=== PATIENT | female | born 1940 | race Caucasian/White ===

== ENCOUNTER → 2017-11-19 | Outpatient (CLI) | payer OTHER ==
[2017-11-19 15:41] LABS: CALCIUM 9.1 mg/dL (8.5-10.1); CREATININE 0.7 mg/dL (0.6-1.3); POTASSIUM 4.1 mmol/L (3.5-5.1)
== END ==
LOC: M.ULTRA 15:00
PROVIDERS: Family Medicine
DX: M25.461 Effusion, right knee (principal); M25.561 Pain in right knee; M79.661 Pain in right lower leg; M79.89 Other specified soft tissue disorders

== ENCOUNTER → 2017-11-20 | Outpatient (CLI) | payer OTHER | LOC: M.RAD 09:21 | DX: M25.461 Effusion, right knee (principal); M25.561 Pain in right knee ==

== ENCOUNTER → 2018-12-04 | Outpatient (CLI) | payer OTHER | LOC: M.RAD 12:42 | DX: M85.88 Other specified disorders of bone density and structure, other site (principal); E11.9 Type 2 diabetes mellitus without complications; Z68.33 Body mass index [BMI] 33.0-33.9, adult; Z78.0 Asymptomatic menopausal state ==

== ENCOUNTER → 2019-02-28 | Outpatient (CLI) | payer OTHER | LOC: M.ULTRA 10:16 | DX: N93.9 Abnormal uterine and vaginal bleeding, unspecified (principal) ==

== ENCOUNTER 2019-04-26 23:26 | Emergency (ER) | payer OTHER ==
[~2019-04-26] VITALS: Ht 162.6 cm; Wt 87.5 kg
[2019-04-26] MEDS ORDERED: CENTRUM CHEWAB1 EAC2 PO (23:41)
[2019-04-26] MEDS ORDERED: OMEGA-31000 M1 PO (23:42)
[2019-04-26] MEDS ORDERED: VITAMIN D3400 UNIT PO (23:42)
[2019-04-26] MEDS ORDERED: VITAMIN C500 M1 PO (23:42)
[2019-04-26] MEDS ORDERED: IBUPROFEN 200200 M1 PO (23:43)
[2019-04-26] MEDS ORDERED: VITAMIN E400 UNIT PO (23:43)
[2019-04-26] MEDS ORDERED: CALCIUM 600 +1 EAC1 PO (23:43)
[2019-04-27 00:02] LABS: ABSOLUTE EOSINOPHILS 0.1 thou/uL (0.0-0.7); ABSOLUTE LYMPHOCYTES 1.6 thou/uL (0.8-5.3); ABSOLUTE MONOCYTES 0.4 thou/uL (0.0-1.2); ABSOLUTE NEUTROPHILS 2.6 thou/uL (1.6-8.1); BASOPHILS 0.7 %; EOSINOPHILS 2.5 %; HEMATOCRIT 41.8 % (37.0-47.0); LYMPHOCYTES 34.2 %; MCH 31.5 pg (26.0-34.0); MCHC 33.4 g/dL (28.0-37.0); MCV 94.3 fL (80.0-100.0); MONOCYTES 7.6 %; MPV 7.1 fl. (7.2-11.1); NUCLEATED RBCS 0 /100WBC; PLATELET COUNT* 291 thou/uL (150-400); RBC 4.43 mil/uL (4.20-5.00); RDW-CV 13.1 % (10.5-14.5); WBC 4.7 thou/uL (4.0-11.0)
[2019-04-27 00:10] LABS: ANION GAP 8 mmol/L (7-16); BUN 17 mg/dL (7-18); CALCIUM 9.4 mg/dL (8.5-10.1); CHLORIDE 103 mmol/L (98-107); CO2 28 mmol/L (21-32); CREATININE 0.7 mg/dL (0.6-1.3); GLUCOSE 115 mg/dL (70-99); POTASSIUM 3.9 mmol/L (3.5-5.1); SODIUM 139 mmol/L (136-145)
[2019-04-27 00:20] LABS: ALBUMIN 3.6 g/dL (3.4-5.0); ALKALINE PHOSPHATASE 77 U/L (46-116); SGOT 19 U/L (15-37); SGPT 39 U/L (30-65); TOTAL BILIRUBIN 0.3 mg/dL (<0.1-1.0); TOTAL PROTEIN 7.2 g/dL (6.4-8.2); TROPONIN-I LEVEL <0.06 ng/mL (<0.06)
[2019-04-27 00:58] LABS: URINE BILIRUBIN NEGATIVE (Negative); URINE BLOOD NEGATIVE (Negative); URINE CLARITY CLEAR; URINE COLOR YELLOW; URINE GLUCOSE-RANDOM NEGATIVE (Negative); URINE KETONES NEGATIVE (Negative); URINE LEUKOCYTES-REFLEX 1+ (Negative); URINE NITRITE-REFLEX NEGATIVE (Negative); URINE PROTEIN NEGATIVE (Negative); URINE SPECIFIC GRAVITY <= 1.005 (1.005-1.030); URINE UROBILINOGEN 0.2 E.U./dl (0.2-1.0)
[2019-04-27 01:09] LABS: CASTS None Seen /LPF (None Seen); CRYSTALS None Seen /LPF (None Seen); MUCUS 0-3 Light strn/LPF (None Seen); SQUAMOUS 0-3 Few /LPF (0-3); TRANSITIONAL EPITHEL CELL 0-3 Few /LPF (None Seen); URINE RBC 0-2 Rare /HPF (0-2); WBC CLUMPS Few (None Seen)
[2019-04-27] MEDS ORDERED: KEFLEX500 M1 PO (01:37)
[2019-04-27 01:55] VITALS: BP 132/78
--- NOTE | 2019-04-29 09:27 | EKG ---
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 : 1940 Requested By: Bruce Nuñez Order Number: [id number] MD: Frandy Alegre Measurements Intervals [place] Rate: 83 P: 46 OR: 179 QRS: -24 QRSD: 93 T: 45 QT: 354 QTc: 416 Interpretive Statements Sinus rhythm Borderline left axis deviation Low voltage, precordial leads Borderline T abnormalities, anterior leads No previous ECG available for comparison Electronically Signed On 04-29-2019 9:27:29 CDT by Frandy Alegre [email or web address] <ELECTRONICALLY SIGNED> By: Frandy Alegre MD, [facility] 04/29/1927 Frandy Alegre MD, FACC /EPI
== END 2019-04-27 01:55 | disposition home or self-care (01) ==
LOC: M.ERS 23:26
PROVIDERS: Emergency Medicine Emergency Medical Services
DX: N39.0 Urinary tract infection, site not specified (principal); G89.29 Other chronic pain; M54.40 Lumbago with sciatica, unspecified side; K76.0 Fatty (change of) liver, not elsewhere classified; Z88.8 Allergy status to other drugs, medicaments and biological substances

== ENCOUNTER → 2019-05-12 | Outpatient (CLI) | payer OTHER ==
[~2019-05-12] MED LIST: CALCIUM 600 +1 EAC1 PO; CENTRUM CHEWAB1 EAC2 PO; IBUPROFEN 200200 M1 PO; KEFLEX500 M1 PO; OMEGA-31000 M1 PO; VITAMIN C500 M1 PO; VITAMIN D3400 UNIT PO; VITAMIN E400 UNIT PO
== END ==
LOC: M.MRI 10:56
DX: M51.16 Intervertebral disc disorders with radiculopathy, lumbar region (principal); M48.061 Spinal stenosis, lumbar region without neurogenic claudication; M47.26 Other spondylosis with radiculopathy, lumbar region

== ENCOUNTER 2020-08-11 13:14 | Emergency (ER) | payer OTHER ==
[~2020-08-11] VITALS: Ht 162.6 cm; Wt 81.7 kg
[2020-08-11 14:04] LABS: ABSOLUTE EOSINOPHILS 0.1 thou/uL (0.0-0.7); ABSOLUTE LYMPHOCYTES 1.3 thou/uL (0.8-5.3); ABSOLUTE MONOCYTES 0.4 thou/uL (0.0-1.2); ABSOLUTE NEUTROPHILS 2.5 thou/uL (1.6-8.1); EOSINOPHILS 3.4 %; HEMATOCRIT 42.6 % (37.0-47.0); HEMOGLOBIN 14.2 gm/dL (12.0-15.0); LYMPHOCYTES 30.3 %; MCH 31.7 pg (26.0-34.0); MCHC 33.4 g/dL (28.0-37.0); MCV 94.9 fL (80.0-100.0); MONOCYTES 8.2 %; MPV 7.1 fl. (7.2-11.1); NUCLEATED RBCS 0 /100WBC; PLATELET COUNT* 281 thou/uL (150-400); POLYS 57.1 %; RBC 4.49 mil/uL (4.20-5.00); RDW-CV 13.5 % (10.5-14.5); WBC 4.3 thou/uL (4.0-11.0)
[2020-08-11 14:14] LABS: CALCIUM 8.8 mg/dL (8.5-10.1); CREATININE 0.7 mg/dL (0.6-1.3); POTASSIUM 3.6 mmol/L (3.5-5.1)
[2020-08-11 16:48] VITALS: BP 163/79
== END 2020-08-11 16:48 | disposition home or self-care (01) ==
LOC: M.ERS 13:14
PROVIDERS: Nurse Practitioner Family
DX: M25.462 Effusion, left knee (principal); Z79.899 Other long term (current) drug therapy; Z88.0 Allergy status to penicillin; Z88.8 Allergy status to other drugs, medicaments and biological substances

== ENCOUNTER → 2021-02-03 | Outpatient (CLI) | payer OTHER | LOC: M.RAD 08:24 | DX: Z78.0 Asymptomatic menopausal state (principal); Z88.5 Allergy status to narcotic agent; Z88.1 Allergy status to other antibiotic agents; Z88.2 Allergy status to sulfonamides; Z88.8 Allergy status to other drugs, medicaments and biological substances; M06.9 Rheumatoid arthritis, unspecified ==